=== PATIENT | female | born 1990 | race Caucasian/White ===

== ENCOUNTER 2018-11-25 18:30 | Outpatient (CLI) | payer OTHER ==
[~2018-11-25] VITALS: Ht 157.5 cm; Wt 115.2 kg
[~2018-11-25 18:30] MED LIST: PREN-93 PO
[2018-11-25 19:00] VITALS: BP 112/62; PULSE 105; RESP 18
[2018-11-25 19:01] VITALS: Ht 157.5 cm; Wt 115.2 kg
== END 2018-11-25 21:45 | disposition home or self-care (01) ==
LOC: OBT 18:30 → L-D 18:31 → OBT 21:45
PROVIDERS: ATTEND Specialist
DX: O46.8X3 Other antepartum hemorrhage, third trimester (principal); Z3A.34 34 weeks gestation of pregnancy
CPT/HCPCS: 76815; 76818; 81001; 87086; Z7500; G0463